=== PATIENT | female | born 1965 | race Caucasian/White ===

== ENCOUNTER → 2020-03-19 | Outpatient (CLI) | payer BC ==
[~2020-03-19] MED LIST: Omeprazole20 M1 PO
[2020-03-20 14:08] LABS: HPV 16 Negative (Negative); HPV 18 Negative (Negative); HPV OTHER HR TYPES Negative (Negative)
== END | disposition home or self-care (01) ==
LOC: LAB SHORT 15:24 → LAB 15:24
PROVIDERS: Obstetrics & Gynecology
DX: Z01.419 Encounter for gynecological examination (general) (routine) without abnormal findings (principal)
CPT/HCPCS: 87624; G0123

== ENCOUNTER 2020-04-17 15:28 | Day surgery (SDC) | payer BC ==
[~2020-04-17 15:28] MED LIST changes: +HYDPAM25 PO; +SULTRIDS PO
== END 2020-04-17 17:25 | disposition home or self-care (01) ==
LOC: ATC 15:28
DX: D50.9 Iron deficiency anemia, unspecified (principal); K21.9 Gastro-esophageal reflux disease without esophagitis; D25.9 Leiomyoma of uterus, unspecified; I10 Essential (primary) hypertension; E66.9 Obesity, unspecified; Z88.0 Allergy status to penicillin; Z68.31 Body mass index [BMI] 31.0-31.9, adult; Z79.899 Other long term (current) drug therapy
CPT/HCPCS: J2916

== ENCOUNTER 2020-04-24 00:10 | Day surgery (SDC) | payer BC | END 2020-04-24 09:16 | disposition home or self-care (01) | LOC: ATC 00:10 | DX: D50.9 Iron deficiency anemia, unspecified (principal); K21.9 Gastro-esophageal reflux disease without esophagitis; Z88.0 Allergy status to penicillin; Z87.440 Personal history of urinary (tract) infections; D25.9 Leiomyoma of uterus, unspecified; I10 Essential (primary) hypertension; Z79.899 Other long term (current) drug therapy; E66.9 Obesity, unspecified; Z68.31 Body mass index [BMI] 31.0-31.9, adult; Z98.84 Bariatric surgery status ==

== ENCOUNTER 2020-05-25 16:10 | Inpatient (IN) | payer BC ==
[~2020-05-25] VITALS: Ht 157.5 cm; Wt 80.6 kg
--- NOTE | 2020-05-28 06:52 | NUR ---
Ambulatory in Day Surgery History, Chart, Medications and Allergies reviewed before start of procedure. Lungs clear T/O to Auscultation. Pre-Op teaching done. Pt verbalizes understanding.
--- NOTE | 2020-05-28 14:22 | NUR ---
CALL OUT TO DR KULKARNI REGARDING PAIN MANAGEMENT. PT STATES CANNOT TAKE PERCOCET; CAUSES EXTREME N/V. 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 REPORTS PAIN TOLERABLE AT THIS TIME, RATING 2/10 WHEN AT REST. CALL LIGHT IN REACH.
--- NOTE | 2020-05-28 16:59 | NUR ---
SUMMARY NO ACUTE CHANGES SINCE ARRIVING TO FLOOR FROM PACU. PT HAS DENIED N/V. MEDICATED FOR 2-3 ABDOMINAL PAIN W/TORADOL PER ORDERS. TOLERATED SMALL AMT CLEARS. RESTED OFF AND ON T/O SHIFT. VSS. DRAINAGE TO DRESSING ON INCISION REMAINS UNCHANGED. SCANT AMT DRAINAGE NOTED ON CHELI PAD. PLAN TO GET UP WITH DINNER. CALL LIGHT IN REACH.
[2020-05-29 05:02] LABS: BASOPHILS ABSOLUTE AUTO 0.03 K/mm3 (0.00-0.23); BASOPHILS PERCENT AUTO 1 % (0-2); EOSINOPHILS ABSOLUTE AUTO 0.06 K/mm3 (0.00-0.68); EOSINOPHILS PERCENT AUTO 1 % (0-6); Hemoglobin 7.5 g/dL (11.5-16.0); IMMATURE GRAN ABSOLUTE AUTO 0.01 K/mm3 (0.00-0.10); IMMATURE GRAN PERCENT AUTO 0 % (0-1); LYMPHOCYTES ABSOLUTE AUTO 1.35 K/mm3 (0.84-5.20); LYMPHOCYTES PERCENT AUTO 27 % (21-46); MONOCYTES ABSOLUTE AUTO 0.43 K/mm3 (0.16-1.47); MONOCYTES PERCENT AUTO 8 % (4-13); Mean Corpuscular HGB Conc 27.8 g/dL (31.5-36.5); Mean Corpuscular Volume 69 fL (80-100); Mean Platelet Volume 9.2 fL (9.1-12.4); NEUTROPHILS ABSOLUTE AUTO 3.21 K/mm3 (1.96-9.15); NEUTROPHILS PERCENT AUTO 63 % (41-73); Platelet Count 306 K/mm3 (150-400); RDW Coefficient Variation 21.8 % (11.7-14.2); Red Blood Cell Count 3.94 M/mm3 (3.80-5.20); White Blood Cell Count 5.09 K/mm3 (4.00-11.30)
--- NOTE | 2020-05-29 05:04 | NUR ---
SHIFT SUMMARY POD1 TOTAL ABD HYST. A/0. VSS. NO ACUTE CHANGES. PAIN IS WELL CONTROLLED REPORTED 09/02. SCHEDULED PAIN MED GIVEN MD ORDERS. PT DID NOT REQUEST FOR PRN PAIN MEDS. ABD TRANSVERSE INC, DRAINAGE UNCHANGED. NO VAG BLEED ON PERIPAD SINCE LAST NIGHT. PT REPORTS TOLERATED PO INTAKE WELL DENIES NAUSEA/VOMITING. MUNSON CATH OUTPUT AT 750ML. WILL DC MUNSON LATER. PT SLEPT WELL LAST NIGHT.
--- NOTE | 2020-05-29 09:50 | NUR ---
05/29/20 0950 Camila Hamlin VERIFICATIONS: EDIT CHART.
[2020-05-29] MEDS ORDERED: HYDR1TAB94 PO (11:15)
[2020-05-29] MEDS ORDERED: IBU800 MG PO (11:16)
--- NOTE | 2020-05-29 11:29 | NUR ---
discharged REVIEWED DC ORDERS W/PT; VERBALIZED UNDERSTANDING. DC'D IV, CATHETER INTACT. PT LEFT UNIT BY AMBULATION, ACCOMPANIED BY S.O. W/POSSESSIONS AND DC PAPERWORK IN HAND.
== END 2020-05-29 11:27 | disposition home or self-care (01) | DRG 743 ==
LOC: SURS 05-28 06:23 → PRE IP 05-28 07:30 → SURS 05-28 11:00
PROVIDERS: ADMIT Obstetrics & Gynecology
PROC: 0UT50ZZ Resection of Right Fallopian Tube, Open Approach (ICD-10-PCS; 2020-05-28)
PROC: 0UT90ZL Resection of Uterus, Supracervical, Open Approach (ICD-10-PCS; principal; 2020-05-28 07:30)
PROC: 0UT00ZZ Resection of Right Ovary, Open Approach (ICD-10-PCS; 2020-05-28 07:30)
DX: D25.9 Leiomyoma of uterus, unspecified (principal); N92.0 Excessive and frequent menstruation with regular cycle
CPT/HCPCS: 36415; 85025; 88307; J0690; J1885; J2250; J2405; J2550; J2704; J2710; J2765; J3010; J7120